=== PATIENT | female | born 1975 | race Caucasian/White ===

== ENCOUNTER 2021-10-03 21:58 | Inpatient (IN) | payer BC ==
[~2021-10-03] VITALS: Ht 175.3 cm; Wt 63.5 kg
[2021-10-03 23:34] LABS: HEMATOCRIT 33.7 % (31.2-41.9); MEAN CORPUSCULAR HEMOGLOBIN 30.7 uug (24.7-32.8); MEAN CORPUSCULAR VOLUME 91.4 fL (75.5-95.3); PLATELET COUNT (AUTO) 370 K/uL (179-408)
[2021-10-03 23:41] LABS: CARBON DIOXIDE 30 mmol/L (21-32); CHLORIDE 102 mmol/L (98-107); CREATININE 0.7 mg/dL (0.6-1.3); GLUCOSE 128 mg/dL (74-106); POTASSIUM 3.3 mmol/L (3.5-5.1); UREA NITROGEN, BLOOD 8 mg/dL (7-18)
[2021-10-03 23:46] LABS: ALANINE AMINOTRANSFERASE 22 U/L (14-59); ALKALINE PHOSPHATASE 145 U/L (50-136); ASPARTATE AMINOTRANSFERASE 17 U/L (15-37); BILIRUBIN,DIRECT 0.1 mg/dL (0.0-0.2); BILIRUBIN,TOTAL 0.3 mg/dL (0.2-1.0); TOTAL PROTEIN, SERUM 7.4 g/dL (6.4-8.2)
[2021-10-03 23:48] LABS: *BILIRUBIN,URIN NEGATIVE (NEGATIVE); *COLOR,URINE YELLOW (YELLOW); *KETONES,URINE NEGATIVE (NEGATIVE); LEUKOCYTE ESTERASE ,URINE 1+ (NEGATIVE); NITRITE, URINE NEGATIVE (NEGATIVE); UGLUCOSE NEGATIVE (NEGATIVE)
[2021-10-03 23:49] LABS: ACETAMINOPHEN < 2.0 ug/mL (10-30)
[2021-10-03 23:50] LABS: *BLOOD, URINE TRACE (NEGATIVE); *CLARITY,URINE HAZY (CLEAR)
[2021-10-03 23:55] LABS: BACTERIA,URINE FEW /HPF (NONE SEEN); SQUAMOUS EPITHELIAL CELL,UR MANY /HPF (NONE SEEN)
[2021-10-03 23:57] LABS: *URINE HCG, QUAL NEGATIVE (NEGATIVE)
[2021-10-04 00:01] LABS: *AMPHETAMINE, URINE NEGATIVE (NEGATIVE); *CANNABINOID, URINE NEGATIVE (NEGATIVE); *COCCAINE, URINE NEGATIVE (NEGATIVE); *OPIATE, URINE NEGATIVE (NEGATIVE); *PHENCYCLIDINE SCREEN,URINE NEGATIVE (NEGATIVE)
[2021-10-04 00:20] LABS: ETHANOL < 3 MG/DL (0-0)
[2021-10-04] MEDS ORDERED: CEFTRIAXONE 1 G in IV DEXTROSE 5% 50 ML IV ONE (01:45)
[2021-10-04] MEDS ORDERED: AZITHROMYCIN 250 MG TABLET PO ONE (01:45)
[2021-10-04] MEDS ORDERED: AZITHROMYCIN 250 MG TABLET ONE (02:22)
[2021-10-04] MEDS ORDERED: CEFTRIAXONE /D5W 50ML IVPB **ER PYXIS IV ONE (02:22)
[2021-10-04] MEDS ORDERED: OXYCODONE/APAP 5-325 MG TABLET PO ONE (02:45)
[2021-10-04] MEDS ORDERED: OXYCODONE/APAP 5-325 MG TABLET ONE (02:52)
--- NOTE | 2021-10-04 03:21 | NUR ---
spoke w/[facility] CM regarding patient clinicals.
--- NOTE | 2021-10-04 03:50 | NUR ---
[facility] declines transfer. no beds at this time.
--- NOTE | 2021-10-04 04:05 | NUR ---
Pt. admitted to Med/Surg, under care of Dr. Taiwo Gonzalez Dx: Pneumonia Belongs List completed
--- NOTE | 2021-10-04 06:05 | NUR ---
PT ASSIGNED TO 324, BUT REPORT AFTER CHANGE OF SHIFT
--- NOTE | 2021-10-04 07:11 | NUR ---
Report given to Asa JIMENEZ. patient is resting w/eyes closed. resp even & unlabored.
--- NOTE | 2021-10-04 07:46 | NUR ---
Attempted to get info of personal belongings but pt kept talking about anything except and did not let me check her bags.
--- NOTE | 2021-10-04 08:10 | NUR ---
Called report to TONY Plata.
[2021-10-04] MEDS ORDERED: Z GUARD REMEDY PASTE 57 GM TUBE TOP PRN (10:00)
[2021-10-04] MEDS: ENOXAPARIN SODIUM 40 MG/0.4 ML DISP.SYRIN SQ SCH (10:00)
[2021-10-04] MEDS ORDERED: MAGNESIUM HYDROXIDE 30 ML LIQUID UDC PO PRN (10:00)
[2021-10-04] MEDS ORDERED: POTASSIUM CHLORIDE 20 MEQ TAB.PRT.SR PO ONE (10:00)
[2021-10-04] MEDS ORDERED: ONDANSETRON 4 MG/2 ML VIAL IV PRN (10:00)
[2021-10-04] MEDS ORDERED: ACETAMINOPHEN 325 MG TABLET PO PRN (10:00)
[2021-10-04 11:00] VITALS: BP 148/72
--- NOTE | 2021-10-04 11:50 | NUR ---
Social Work Consult Patient is a 46 year old woman admitted for pneumonia. she is alert and oriented x4 and is paranoid and rather hostile. 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 She has been living on the streets for sometime and is familiar with all the resources. Patient states " you need to find me a room at [facility]". Patient denies any history of mental illness and staes " why would you ask that? I am an intelligent woman". Patient's speech is pressured and she does not answer any questions and is selective. Her presentation is that of schizoaffective disorder most likely in the manic or hypomanic phase. Patient is self-preserving and asking for water. Patient is not meeting 5150 criteria so can leave if she wishes to. Discussed case with Dr Ritchie who will order psychiatry consult. Patient is in denial re any mental illness so is unlikely to comply with any prescribed psychotropics. Patient will be given homeless resources and needs to sign the homeless wiaver at discharge. RN needs to complete the homeless checklist intervention at discharge.
[2021-10-04] MEDS: HYDROCODONE/APAP 10-325 MG TABLET PO PRN ×2 (12:01→21:21)
[2021-10-04 16:00] VITALS: BP 140/68
--- NOTE | 2021-10-04 18:35 | NUR ---
Pt was admitted from ER to [facility] at 0900 via gurney for right lower lobe pneumonia. pt is a/o x 2 unfocused, agitated and uncooperative with care. Pt has a left AC 20g. Consult orders entered for psych, case management, wound care and psychotherapist social worker. Pt has to skin tears on both hands but refused to have photo taken. Pt is hyperverbal, speaks nonsense and mood is incongruent. She is homeless and lives on the streets per pt report. Potassium level is 3.3, PO one time dose of potassium given to pt. Q6H hydrocodone for pain given as requested. Call light within reach, comfort measures provided. Will endorse pt to overnight associate
--- NOTE | 2021-10-04 20:00 | NUR ---
Received patient walking around in room. She is ranting, verbalizes paranoia towards this RN and other hospital staff. Also verbalizes paranoia towards objects and what the labels on objects. Ex. her make up and trash can. Patient is yelling and telling this RN to remove her IV on her left AC or she would pull it out herself. States she doesn't want an IV. Explained to patient the need for IV but she was adamant to remove it. IV removed at this time and paged Dr. Pineda to change IV medications to PO and report inappropriate aggressive behavior. Made aware of call light and how to use it. Patient is unable to focus her attention and continues to rant and yell at this RN.
[2021-10-04] MEDS ORDERED: LORAZEPAM 1 MG TABLET PO PRN (21:00)
[2021-10-04] MEDS ORDERED: QUETIAPINE FUMARATE 25 MG TABLET PO SCH (21:00)
[2021-10-04] MEDS ORDERED: DOXYCYCLINE HYCLATE IV 100 MG in IV DEXTROSE 5% 100 ML IV SCH (21:00)
--- NOTE | 2021-10-04 21:00 | NUR ---
Patient is ranting, pacing, verbally agressive towards staff. She is getting getting physically close to staff while shouting and ranting. Dr. Pineda made aware with orders for Seroquel 25mg and Ativan 1mg now. Also, gave orders to switch to PO ABX Augmentin BID.
[2021-10-04] MEDS: AMOXICILLIN-CLAVUL 875-125MG TABLET PO SCH (21:10)
--- NOTE | 2021-10-04 22:30 | NUR ---
Patient is sleeping in bed, in no distress at this time.
--- NOTE | 2021-10-05 | NUR ---
Patient transferred from room 324 to 320. She became agitated during move and continues to have pressured speech with low concentration. Patient seems to be in a manic state. states " I don't believe you work here, maybe you stole a badge and pretended you work here". Then began to walk around unit hallway pointing at staff and verbalizing suspicion. Able to guide her back to her room, provided snacks per her request and warm blankets. Call light within reach.
[2021-10-05] MEDS ORDERED: CEFTRIAXONE 1 G in IV DEXTROSE 5% 50 ML IV SCH (02:00)
--- NOTE | 2021-10-05 06:46 | NUR ---
Patient slept on and off for remainder of shift. Becomes agitated and paranoid whenever staff attempt to speak to her. Refused Protonix PO multiple times. Refused AM labs, kicked skilled laborer out of the room. Patient remains hostile. No other significant events.
[2021-10-05] MEDS ORDERED: PANTOPRAZOLE SODIUM 40 MG TABLET.DR PO SCH (07:00)
[2021-10-05] MEDS: AMOXICILLIN-CLAVUL 875-125MG TABLET PO SCH (09:14)
[2021-10-05] MEDS: ENOXAPARIN SODIUM 40 MG/0.4 ML DISP.SYRIN SQ SCH (09:33)
--- NOTE | 2021-10-05 09:48 | NUR ---
WOUND CARE CONSULT: PT AGREED TO HAVE SKIN ASSESSMENT, THEN BEGAN SCREAMING AND BECAME UNCOOPERATIVE. WILL SEE PT PT CONDITION PERMITS.
[2021-10-05 11:25] VITALS: BP 116/79
[2021-10-05] MEDS: HYDROCODONE/APAP 10-325 MG TABLET PO PRN (11:26)
--- NOTE | 2021-10-05 13:00 | NUR ---
pt refused all lab draws, notified. Pt not compliant with medications, irritable and refuses medications. Agreed to take oral antibiotic this am. Pt complained of back lump pain, ultrasound of chest/mediastinum completed for lump on pt's back. resulted as negative. Plan is to discharge patient.
[2021-10-05 15:39] VITALS: BP 127/80
--- NOTE | 2021-10-05 18:34 | NUR ---
Pt is ambulatory and discharged. Pt does not have housing and is stated to be homeless. 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 All resources and discharge instruction handed to pt along with written prescription from MD. Pt signed for belongings, discharge instructions, and homeless waiver form. No signs of acute distress, pt had a warm shower and finished dinner tray. Provided pt with [employer] card for transportation, blankets, food/snacks and drinks. Refused additional clothing. No IV access, arm band removed. Pt is aware that MD has discharged her, she is stable for discharge, no pending tests. Pt refuses to leave, security has been called. Pending escort for discharge.
== END 2021-10-05 18:53 | disposition home or self-care (01) | DRG 139 ==
LOC: ER 22:04 → MEDSURG3 10-04 08:29
PROVIDERS: ADMIT Student in an Organized Health Care Education/Training Program; ATTEND Student in an Organized Health Care Education/Training Program
DX: J15.9 Unspecified bacterial pneumonia (principal); G93.41 Metabolic encephalopathy; E44.0 Moderate protein-calorie malnutrition; E87.6 Hypokalemia; Z59.02 Unsheltered homelessness; S01.01XD Laceration without foreign body of scalp, subsequent encounter; W22.8XXD Striking against or struck by other objects, subsequent encounter; F29 Unspecified psychosis not due to a substance or known physiological condition; F31.64 Bipolar disorder, current episode mixed, severe, with psychotic features; Z68.20 Body mass index [BMI] 20.0-20.9, adult; Z20.822 Contact with and (suspected) exposure to COVID-19; N39.0 Urinary tract infection, site not specified; Z91.81 History of falling; F15.90 Other stimulant use, unspecified, uncomplicated; M47.816 Spondylosis without myelopathy or radiculopathy, lumbar region; M47.817 Spondylosis without myelopathy or radiculopathy, lumbosacral region
CPT/HCPCS: 36415; 70450; 71046; 72072; 72100; 84703; 85025; 87040; 87086; 93880; A4663; G0378; G0480; J0696; J1650; J3490; J7060; Q0144